=== PATIENT | male | born 1970 | race Caucasian/White ===

== ENCOUNTER → 2023-05-16 | Outpatient (REF) | payer BC, SELFPAY | LOC: DHSLP | PROVIDERS: ATTENDING PHYSICIAN Internal Medicine; FAMILY PHYSICIAN Internal Medicine | DX: G47.33 Obstructive sleep apnea (adult) (pediatric) (principal) | CPT/HCPCS: 95800 ==

== ENCOUNTER 2023-09-06 08:46 | Day surgery (SDC) | payer BC, SELFPAY ==
[2023-08-26 13:12] VITALS: BMI 50.3
[2023-08-26 13:22] LABS: % Basophils 0.6 % (0-2); % Eosinophils 1.9 % (0-6); % Immature Granulocytes 0.6 % (0-0.5); % Lymphocytes 23.3 % (20.5-51.1); % Monocytes 11.7 % (1.7-9.3); % Neutrophils 61.9 % (42.2-75.2); Absolute Basophils 0.1 10^3/uL (0-0.2); Absolute Eosinophils 0.2 10^3/uL (0-0.7); Absolute Immature Granulocytes 0.1 10^3/uL (0-0.05); Absolute Lymphocytes 2.4 10^3/uL (1.2-3.4); Absolute Monocytes 1.2 10^3/uL (0.1-0.6); Absolute Neutrophils 6.3 10^3/uL (1.4-6.5); Hematocrit 45.1 % (39.0-52.0); Hemoglobin 16.3 g/dL (13.0-18.0); Mean Corp Hgb Conc. 36.1 g/dL (33.0-37.0); Mean Corpuscular Hgb 30.8 pg (27.0-31.0); Mean Corpuscular Volume 85.1 fL (80.0-94.0); Nucleated Red Blood Cells % 0 % (-); Platelet Count 258 10^3/uL (130-400); Red Cell Dist. Width 13.6 % (11.5-14.5); White Blood Cell Count 10.1 10^3/uL (4.8-10.8)
[2023-08-26 13:24] LABS: INR 1.05; PT 13.5 Sec (11.4-14.6)
[2023-08-26 13:31] LABS: ALT (SGPT) 26 U/L (0-50); AST (SGOT) 26 U/L (17-59); Albumin 4.3 g/dl (3.5-5.0); Alkaline Phosphatase 86 U/L (38-126); Blood Urea Nitrogen 21 mg/dl (9-20); Calcium 9.4 mg/dl (8.4-10.2); Carbon Dioxide 25 mmol/L (22-30); Chloride 103 mmol/L (98-107); Estimated Creatinine Clearance > 125 ml/min; Glucose 95 mg/dl (70-99); Magnesium 2.1 mg/dl (1.6-2.3); Potassium 4.2 mmol/L (3.5-5.1); Sodium 137 mmol/L (135-145); Total Bilirubin 1.4 mg/dl (0.2-1.3); Total Protein 7.4 g/dl (6.3-8.2); eGFR > 60.00
[2023-09-06] VITALS (17 sets, daily range): BP systolic 118–203; BP diastolic 85–126; BMI 47.5
--- NOTE | 2023-09-06 10:44 | ITS.CL.ABL ---
[facility] - Ablation
Ablation
Procedure Report:
Primary Stitching Department Supervisor: Kevyn Boyd MD
Procedure Date: 09/06/2023
Procedure
Electrophysiology Study, with RA, CS pacing and recording
Radiofrequency Ablation of Counterclockwise Cavotricuspid Isthmus-dependent Right Atrial Flutter
Three-dimensional Electroanatomic Mapping and Navigation
Patient History
See H&P for complete details
Patient is a pleasant 52-year-old male with a past medical history significant for heart failure with preserved ejection fraction, hypertension, morbid obesity, obstructive sleep apnea on CPAP, paroxysmal typical atrial flutter status post
cardioversion x 3 on sotalol. Patient without documented atrial fibrillation.
Method
After informed consent was obtained, the patient was brought to the EP lab in a post-absorptive, non-sedated state. A peripheral IV was in place. Continuous electrocardiography, blood pressure and pulse oximetry monitoring were initiated and
cardioversion / defibrillator patch electrodes were positioned on the chest in an anterior-posterior orientation. Sedation was administered via the anesthesia services. A time-out was called. Local anesthesia was administered at the right and left
femoral vein access sites. Vascular access was achieved using modified Seldinger technique, and 3 sheaths were placed.
The patient entered the room in sinus rhythm. A multipolar catheter were advanced to the coronary sinus. A mapping / ablation catheter was used to record and pace. Intracardiac ultrasound (ICE) was utilized for structural assessment and monitoring.
No evidence of pericardial effusion pre and post ablation. No arrhythmia was induced prior to procedure. Heparin was provided for ACT 300-400 and HD grid was inserted into the right atrium via steerable sheath for 3D electroanatomic mapping.
Clockwise and counterclockwise transisthmus times were determined. HD grid was removed and [employer] SE D/F curve ablation catheter was advanced in the right atrium through the steerable sheath.
Three-dimensional electroanatomic mapping was utilized. Catheter ablation in the right atrium was performed as described below. Ablation continued until a line was complete from the tricuspid valve annulus to the IVC-RA junction. Clockwise and
counterclockwise trans-isthmus times were determined, and RA activation patterns confirmed bidirectional block. Interval measurements in NSR were made. A waiting period was observed, after which the procedure was concluded. Using CS pacing,
ablation catheter traced the ablation line demonstrating split potentials on the entirety of the RF line. No arrhythmia was induced at completion of procedure.
At the end of the procedure, all catheters and sheaths were removed, hemostasis was assured in the standard fashion, and the patient was taken to the recovery area in stable condition.
Baseline Intervals:
Rhythm: Sinus rhythm
IL: 148 ms
QRS: 106 ms
QT: 364 ms
QTc: 454 ms
A-A: 642 ms
R-R: 642 ms
AVWB: 320 ms
Post-Procedure Intervals:
IL: 180 ms
QRS: 102 ms
QT: 392 ms
QTc: 432 ms
A-A: 822 ms
R-R: 822 ms
AVWB: 340 ms
AERP: 600/250 ms
No arrhythmia was inducible post ablation
Mapping and Ablation
Utilizing electroanatomic three-dimensional navigation, a 3.5 mm tip [employer] SE irrigated ablation catheter was advanced to the right atrium with the assistance of an 11.5 Fr [employer] steerable long sheath. An electroanatomic three-dimensional map
of the right atrium was constructed, with careful attention to anatomic landmarks, including the coronary sinus, IVC-RA and SVC-RA junction, tricuspid valve annulus, and region of the His bundle electrogram.
An ablation line was created from the tricuspid annulus to the IVC in the 6:00 position (YAKUT clock). Power was titrated between 30 and 40 Shetty. The line was completed during CS pacing, and bidirectional block was achieved. The ablation line was
mapped to ensure widely spaced double potentials, and after a 20 minute waiting period, bidirectional block persisted.
Ablation Summary
Total ablation time: 9 minutes 28 seconds
Estimated Blood Loss
5-10 mL
Fluoroscopy Time 2.0
Radiation Dose 72.96 mGy
DAP 7.19
Complications
None
Conclusions
1. Successful ablation of the cavotricuspid isthmus with bidirectional block.
2. No inducible arrhythmia at completion of ablation.
Recommendations
- Anticipate discharge home today
- Bedrest with straight leg precautions for four hours
- Resume anticoagulation tonight if patient/groins stable
- Continue remaining home medications as indicated; consider discontinuation of sotalol at 3 month charlie if arrhythmia free
- Follow-up in clinic with Dr. Boyd
Ceferino Lew DO
Clinical Cardiac Electrophysiology
cc: Kevyn Boyd MD; Kwabena Méndez DO
[2023-09-06 12:53] LABS: ACT-LR - POC 255 Seconds (116-155)
[2023-09-06 13:05] LABS: ACT-LR - POC 179 Seconds (116-155)
[2023-09-06] MEDS: DILAUDID 0.5 MG IV (13:59)
[2023-09-06] MEDS: APRESOLINE 10 MG IV ×2 (15:10→17:42)
[2023-09-06] MEDS: DEMADEX 20 MG PO (16:59)
--- NOTE | 2023-09-06 17:28 | PTCARENOTE ---
Pt will high blood [id number] Fredrick Buyer Liaison made aware,pt walked hallways and voided,pt wants to go home,Buyer Liaison fredrick at bedside, nurse instructed pt reasons to stay a little longer this pm will cont to assess and encourage.
--- NOTE | 2023-09-06 17:36 | PTCARENOTE ---
Pt has told me multip times to stay in my flavia,Sock Drier Loreta H at bedside will cont to assess
[2023-09-06] MEDS: BETAPACE 160 MG PO (17:47)
--- NOTE | 2023-09-06 17:49 | W.PN.UPDATE ---
Update Note
Progress Note Update
52 yo WM s/p CTI flutter today, he feels good, no cp, sob, david diet, voiding, his bp has been elevated all day post procedure, hydralazine 10mg iv given earlier. He is for d/c at 5:30 but BP remains elevated at 200's/120's. He is very aggravated as
his family is waiting in the car and his food is getting cold. I educated him that this is a HTN urgency and he is at risk of stroke and bleeding if we were to d/c him at this time. He has been on and off bp meds in past and thinks this could be d/t
being off sotalol and torsemide. He was given another dose of hydralazine, torsemide and his sotalol dose and will be monitored until his SBP under 170. Dr. Lew and RN made aware. He will monitor his bp at home and if remains greater than 140/90
with resuming medications his will contact his PCP in the next 24-48 hours. He will take his Eliquis at home tonight and f/u Dr. Boyd in 1 mo.
Conclusions
1. Successful ablation of the cavotricuspid isthmus with bidirectional block.
2. No inducible arrhythmia at completion of ablation.
Recommendations
- Anticipate discharge home today
- Bedrest with straight leg precautions for four hours
- Resume anticoagulation tonight if patient/groins stable
- Continue remaining home medications as indicated; consider discontinuation of sotalol at 3 month charlie if arrhythmia free
- Follow-up in clinic with Dr. Boyd
Ceferino eLw, DO
Clinical Cardiac Electrophysiology
cc: Kevyn Boyd MD; Kwabena Méndez DO
== END 2023-09-06 18:05 | disposition home or self-care (01) ==
LOC: CATH 08:46
PROVIDERS: ATTENDING PHYSICIAN Internal Medicine Cardiovascular Disease; FAMILY PHYSICIAN Internal Medicine; OTHER PHYSICIAN Internal Medicine Cardiovascular Disease
DX: I48.92 Unspecified atrial flutter (principal); Z79.01 Long term (current) use of anticoagulants; I11.0 Hypertensive heart disease with heart failure; I50.32 Chronic diastolic (congestive) heart failure; E66.01 Morbid (severe) obesity due to excess calories; G47.33 Obstructive sleep apnea (adult) (pediatric); R06.09 Other forms of dyspnea; M19.90 Unspecified osteoarthritis, unspecified site; G47.00 Insomnia, unspecified; Z79.899 Other long term (current) drug therapy
CPT/HCPCS: C1732; C1894; C1769; C1766; C2630; 36415; 75572; 76937; 80053; 83735; 85025; 85347; 85610; 86850; 86900; 86901; 93005; 93653; Q9967